=== PATIENT | female | born 2000 | race Caucasian/White ===

== ENCOUNTER 2021-10-28 22:31 | Emergency (ER) | payer MEDICAID ==
[~2021-10-28] VITALS: Ht 167.6 cm; Wt 71.0 kg
[2021-10-28 22:34] VITALS: BP 134/94
== END 2021-10-29 03:20 | disposition left against medical advice (07) ==
LOC: ER 22:31
DX: Z53.21 Procedure and treatment not carried out due to patient leaving prior to being seen by health care provider (principal)
CPT/HCPCS: 93005